=== PATIENT | female | born 1995 | race Caucasian/White ===

== ENCOUNTER 2025-03-27 00:20 | Inpatient (IN) | payer OTHER ==
[~2025-03-27] VITALS: Ht 180.3 cm; Wt 119.7 kg
[2025-03-27] MEDS ORDERED: LIDOCAINE HCL 1% 30 ML SDV INJ PRN (00:30)
[2025-03-27] MEDS ORDERED: CALCIUM CARBONATE 500 MG CHEW PO PRN ×2 (00:30→18:45)
[2025-03-27] MEDS ORDERED: TERBUTALINE SULFATE 1 MG/ML AMP SUB-Q PRN (00:30)
[2025-03-27] MEDS ORDERED: LACTATED RINGER'S 1,000 ML IV PRN (00:30)
[2025-03-27] MEDS ORDERED: OXYTOCIN/0.9 % SODIUM CHLORIDE 30 UNITS/500 ML BAG IV SCH (00:30)
[2025-03-27] MEDS ORDERED: MAGNESIUM HYDROXIDE/AL HYDROX 30 ML CUP PO PRN ×2 (00:30→18:45)
[2025-03-27 01:05] LABS: MCH 29.5 PG (25.6-32.2); MCHC 33.1 g/dL (32.2-35.5); MCV 88.9 fL (79.4-94.8); RBC 4.07 M/uL (3.93-5.22)
[2025-03-27 01:12] VITALS: BP 133/86
[2025-03-27 01:22] LABS: AMPHETAMINES, URINE NEGATIVE (NEGATIVE); BARBITURATES, URINE NEGATIVE (NEGATIVE); BENZODIAZEPINE, URINE NEGATIVE (NEGATIVE); CANNABINOID, URINE NEGATIVE (NEGATIVE); COCAINE, URINE NEGATIVE (NEGATIVE); ECSTASY, URINE NEGATIVE (NEGATIVE); FENTANYL, URINE NEGATIVE (NEGATIVE); METHADONE, URINE NEGATIVE (NEGATIVE); OPIATES, URINE NEGATIVE (NEGATIVE); OXYCODONE, URINE NEGATIVE (NEGATIVE); PHENCYCLIDINE, URINE NEGATIVE (NEGATIVE)
[2025-03-27 01:42] LABS: ABO O; RH POSITIVE
[2025-03-27 01:43] LABS: ANTIBODY SCREEN NEGATIVE
[2025-03-27] MEDS ORDERED: PROMETHAZINE HCL 25 MG SUPP PR ONE (14:45)
[2025-03-27] MEDS ORDERED: ROPIVACAINE 0.2% 200 ML BAG ONE (14:55)
[2025-03-27] MEDS ORDERED: TRANEXAMIC ACID IN NACL,ISO-OS 0 ML IV ONE (17:48)
[2025-03-27] MEDS ORDERED: HYDROCODONE/ACETA 5/325 TAB PO PRN (18:45)
[2025-03-27] MEDS ORDERED: MAGNESIUM HYDROXIDE 30 ML UDC PO PRN (18:45)
[2025-03-27] MEDS ORDERED: BENZOCAINE 60 ML AEROSOL TOP PRN (18:45)
[2025-03-27] MEDS ORDERED: WITCH HAZEL/GLYCERIN 1 EA PAD TOP PRN (18:45)
[2025-03-27] MEDS ORDERED: OXYTOCIN/0.9 % SODIUM CHLORIDE 500 ML IV SCH (18:45)
[2025-03-27] MEDS ORDERED: LIDOCAINE 2% VISCOUS 6 ML SYR TOP ONE ×2 (18:45)
[2025-03-27] MEDS ORDERED: HYDROCORTISONE ACETATE 25 MG SUPP PR PRN (18:45)
[2025-03-27] MEDS ORDERED: IBUPROFEN 600 MG TAB PO SCH (20:00)
[2025-03-27] MEDS ORDERED: SENNOSIDES/DOCUSATE 1 EA TAB PO SCH (21:00)
[2025-03-27] MEDS ORDERED: ACETAMINOPHEN 500 MG TAB PO SCH (22:00)
== END 2025-03-28 18:37 | disposition home or self-care (01) | DRG 806 ==
LOC: FBC 00:20
PROVIDERS: ADMIT Obstetrics & Gynecology; ATTEND Obstetrics & Gynecology
PROC: 10E0XZZ Delivery of Products of Conception, External Approach (ICD-10-PCS; principal; 2025-03-27)
PROC: 0KQM0ZZ Repair Perineum Muscle, Open Approach (ICD-10-PCS; 2025-03-27)
PROC: 4A1HXCZ Monitoring of Products of Conception, Cardiac Rate, External Approach (ICD-10-PCS; 2025-03-27)
PROC: 3E0P7VZ Introduction of Hormone into Female Reproductive, Via Natural or Artificial Opening (ICD-10-PCS; 2025-03-27)
PROC: 3E033VJ Introduction of Other Hormone into Peripheral Vein, Percutaneous Approach (ICD-10-PCS; 2025-03-27)
DX: O24.420 Gestational diabetes mellitus in childbirth, diet controlled (principal); C91.01 Acute lymphoblastic leukemia, in remission; Z37.0 Single live birth; O10.92 Unspecified pre-existing hypertension complicating childbirth; Z3A.40 40 weeks gestation of pregnancy; O70.1 Second degree perineal laceration during delivery; Z88.2 Allergy status to sulfonamides; Z88.0 Allergy status to penicillin; O9A.12 Malignant neoplasm complicating childbirth
CPT/HCPCS: 01960; 36415; 80307; 85027; 86850; 86900; 86901; A9270; J2405; J2795; J7121